=== PATIENT | female | born 1970 | race African-American/Black ===

== ENCOUNTER 2021-11-16 03:11 | Emergency (ER) | payer BC, OTHER ==
[2021-11-16 03:41] LABS: Absolute Lymphocytes (CBC) 4.5 K/uL (0.7-4.9); Hematocrit 39.4 % (36.0-45.0); Lymphocytes % 58.5 % (15.3-44.8); MPV 7.1 fL (7.6-11.3); RBC Red Blood Cell Count 4.37 M/uL (3.86-4.86)
[2021-11-16] MEDS ORDERED: MORPHINE 4 MG/ML SYR ONE (03:46)
[2021-11-16] MEDS ORDERED: ONDANSETRON 4 MG/2 ML VIAL ONE (03:46)
[2021-11-16] MEDS ORDERED: NA CHLORIDE 0.9% 1,000 ML ONE (03:57)
[2021-11-16 04:00] LABS: ALT/SGPT 25 U/L (12-78); AST/SGOT 12 U/L (15-37); Albumin 3.7 g/dL (3.4-5.0); Alkaline Phosphatase 68 U/L (45-117); BUN Blood Urea Nitrogen 19 mg/dL (7-18); Bicarbonate 27 mmol/L (21-32); Bilirubin Direct < 0.1 mg/dL (0-0.2); Bilirubin Total 0.2 mg/dL (0.2-1.0); Glucose Level 118 mg/dL (74-106); Lipase 116 U/L (73-393); Potassium 3.5 mmol/L (3.5-5.1); Protein, Total 7.7 g/dL (6.4-8.2); Sodium Level 141 mmol/L (136-145)
[2021-11-16 04:42] LABS: Blood Morphology Comment NOT SEEN (NOT SEEN); Platelet Estimate INCR
[2021-11-16 05:24] LABS: Urine Blood 2+ (Negative); Urine Glucose Negative (Negative); Urine Protein Negative (Negative); Urine Specific Gravity 1.025 (1.005-1.030)
--- NOTE | 2021-11-16 06:25 | EDPHYS ---
Physician Documentation [facility] Name: Sosa Knight Age: 51 yrs Sex: Female : 1970 Arrival Date: 11/16/2021 Time: 03:14 Bed 13 Private MD: ED Physician Ronnie Hair HPI: 11/16 03:35 This 51 yrs old Black Female presents to ER via Ambulatory with complaints of Back Pain.7 03:36 The patient complains of pain in the left flank. The pain radiates to the Left lower mh7 abdomen. Onset: The symptoms/episode began/occurred today, at 01:00. Modifying factors: The symptoms are alleviated by nothing. the symptoms are aggravated by movement, palpation/percussion. Associated signs and symptoms: Pertinent positives: nausea, Pertinent negatives: diarrhea, dizziness, dysuria, fever, urinary frequency, headache, hematuria, pain radiating to the lower extremities, vomiting. Severity of pain: At its worst the pain was moderate today, in the emergency department the pain is unchanged. 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 - Social history:: Smoking status: Patient denies any tobacco usage or history of. ROS: 03:36 Constitutional: Negative for fever, chills, and weight loss, Eyes: Negative for injury, mh7 pain, redness, and discharge, ENT: Negative for injury, pain, and discharge, Neck: Negative for injury, pain, and swelling, Cardiovascular: Negative for chest pain, palpitations, and edema, Respiratory: Negative for shortness of breath, cough, wheezing, and pleuritic chest pain, : Negative for injury, bleeding, discharge, and swelling, MS/Extremity: Negative for injury and deformity, Skin: Negative for injury, rash, and discoloration, Neuro: Negative for headache, weakness, numbness, tingling, and seizure, Psych: Negative for depression, anxiety, suicide ideation, homicidal ideation, and hallucinations, Allergy/Immunology: Negative for hives, rash, and allergies, Endocrine: Negative for neck swelling, polydipsia, polyuria, polyphagia, and marked weight changes, Hematologic/Lymphatic: Negative for swollen nodes, abnormal bleeding, and unusual bruising. Exam: 03:36 Head/Face: Normocephalic, atraumatic. Eyes: Pupils equal round and reactive to light, mh7 extra-ocular motions intact. Lids and lashes normal. Conjunctiva and sclera are non-icteric and not injected. Cornea within normal limits. Periorbital areas with no swelling, redness, or edema. Neck: Trachea midline, no thyromegaly or masses palpated, and no cervical lymphadenopathy. Supple, full range of motion without nuchal rigidity, or vertebral point tenderness. No Meningismus. Chest/axilla: Normal chest wall appearance and motion. Nontender with no deformity. No lesions are appreciated. Cardiovascular: Regular rate and rhythm with a normal S1 and S2. No gallops, murmurs, or rubs. Normal PMI, no JVD. No pulse deficits. Respiratory: Lungs have equal breath sounds bilaterally, clear to auscultation and percussion. No rales, rhonchi or wheezes noted. No increased work of breathing, no retractions or nasal flaring. 03:36 Skin: Warm, dry with normal turgor. Normal color with no rashes, no lesions, and no evidence of cellulitis. MS/ Extremity: Pulses equal, no cyanosis. Neurovascular intact. Full, normal range of motion. Neuro: Awake and alert, GCS 15, oriented to person, place, time, and situation. Cranial nerves II-XII grossly intact. Motor strength 5/5 in all extremities. Sensory grossly intact. Cerebellar exam normal. Normal gait. Psych: Awake, alert, with orientation to person, place and time. Behavior, mood, and affect are within normal limits. 03:36 Constitutional: The patient appears in no acute distress, alert, awake, uncomfortable. 03:36 Abdomen/GI: Inspection: abdomen appears normal, Bowel sounds: normal, in all quadrants, Palpation: moderate abdominal tenderness, in the left lower quadrant, mass, is not appreciated, rebound tenderness, is not appreciated, voluntary guarding, is not appreciated, involuntary guarding, is not appreciated, no appreciated organomegaly, Rectal exam: the exam is deferred, because of patient request, Indicators: McBurney's point is not tender, Chapman's sign is negative, Rovsing's sign is negative, Obturator sign is negative, Psoas sign is negative, Liver: no appreciated palpable abnormalities, Hernia: not appreciated. 03:36 Back: normal spinal alignment noted, CVA tenderness, that is moderate, is noted on the left, vertebral tenderness, is not appreciated, muscle spasm, is not present. Vital Signs: 03:30 BP 153 / 83; Pulse 104; Resp 20; Temp 97(TE); Pulse Ox 100% on R/A; Weight 90.72 kg lp1 (R); Height 5 ft. 6 in. (167.64 cm); Pain 10/10; 04:32 BP 142 / 86; Pulse 88; Resp 18 S; Pulse Ox 100% on R/A; Pain 8/10; lg3 06:24 BP 136 / 86; Pulse 86; Resp 18 S; Pulse Ox 100% on R/A; Pain 6/10; lg3 03:30 Body Mass Index 32.28 (90.72 kg, 167.64 cm) lp1 MDM: 06:21 Differential diagnosis: nephrolithiasis, pyelonephritis, UTI, diverticulitis. Data [facility] reviewed: vital signs, nurses notes, lab test result(s), amylase and lipase, CBC, electrolytes, urinalysis, radiologic studies, CT scan. Data interpreted: Pulse oximetry: on room air is 100 %. Interpretation: normal. Counseling: I had a detailed discussion with the patient and/or guardian regarding: the historical points, exam findings, and any diagnostic results supporting the discharge/admit diagnosis, the presence of at least one elevated blood pressure reading (>120/80) during this emergency department visit, lab results, radiology results, the need for outpatient follow up, to return to the emergency department if symptoms worsen or persist or if there are any questions or concerns that arise at home. Response to treatment: the patient's symptoms have resolved after treatment, the patient's blood pressure is in an acceptable range, mental status has returned to baseline, the patient no longer shows bradycardia, the patient is not short of breath, the patient is not tachycardic, the patient's pain is gone, the patient's temperature has normalized. 06:25 Patient medically screened. mh7 11/16 03:35 Order name: Basic Metabolic Panel; Complete Time: 04:16 [facility] 11/16 03:35 Order name: CBC with Diff; Complete Time: 04:44 [facility] 11/16 03:35 Order name: Hepatic Function; Complete Time: 04:16 [facility] 11/16 03:35 Order name: Lipase; Complete Time: 04:16 [facility] 11/16 03:47 Order name: Manual Differential; Complete Time: 04:44 EDMS 11/16 03:35 Order name: IV Saline Lock; Complete Time: 03:50 [facility] 11/16 03:35 Order name: Labs collected and sent; Complete Time: 03:54 [facility] 11/16 03:35 Order name: Urine Dipstick-Ancillary (obtain specimen); Complete Time: 05:17 [facility] 11/16 03:35 Order name: CT Stone Protocol [facility] 11/16 05:24 Order name: Urine Dipstick-Ancillary; Complete Time: 05:32 EDMS Administered Medications: 03:52 Drug: Zofran (Ondansetron) 4 mg Route: IVP; Site: left forearm; lg3 03:53 Follow up: Response: No adverse reaction lg3 03:53 Drug: morphine 4 mg Route: IVP; Site: left forearm; lg3 05:55 Follow up: Response: No adverse reaction; RASS: Alert and Calm (0) lg3 03:58 Drug: NS 0.9% 1000 ml Route: IV; Rate: 1000 ml; Site: left forearm; lg3 05:55 Follow up: IV Status: Completed infusion; IV Intake: 1000ml lg3 Disposition Summary: 11/16/21 06:25 Discharge Ordered Location: Home [facility] Problem: new [facility] Symptoms: have improved [facility] Condition: Stable [facility] Diagnosis - Lower abdominal pain, unspecified 7 - Flank Pain 7 - Constipation, unspecified mh7 Followup: [facility] - With: Private Physician - When: 1 - 2 days - Reason: Worsening of condition, Recheck today's complaints, Continuance of care, Re-evaluation by your physician Discharge Instructions: - Discharge Summary Sheet 7 - Constipation, Adult, Pieu-po-Swes mh7 - Abdominal Pain, Adult, Ptfh-[id number] mh7 - Flank Pain, Adult, Tonj-sd-Cjda 7 Forms: - Medication Reconciliation Form [facility] - Thank You Letter 7 - Antibiotic Education mh7 - Prescription Opioid Use [facility] Prescriptions: - Dulcolax (bisacodyl) 5 mg Oral tablet,delayed release (DR/EC) - take 2 tablet by ORAL route once daily As needed; 10 tablet; Refills: 0, [facility] Product Selection Permitted - ondansetron 4 mg Oral tablet,disintegrating - place 1 tablet by TRANSLINGUAL route every 8 hours As needed; 10 tablet; [facility] Refills: 0, Product Selection Permitted - Colace 100 mg Oral Capsule - take 1 tablet by ORAL route every 12 hours; 20 tablet; Refills: 0, Product [facility] Selection Permitted - dicyclomine 20 mg Oral Tablet - take 1 tablet by ORAL route 4 times per day As needed; 20 tablet; Refills: 0, [facility] Product Selection Permitted Signatures: Dispatcher [employer] EDMS Birgit Tracey RN RN lp1 Stephanie Chappell RN RN lg3 Ronnie Hair MD MD [facility] Corrections: (The following items were deleted from the chart) 04:42 03:47 CBC Smear Scan ordered. EDMS EDMS
--- NOTE | 2021-11-16 06:25 | ER ---
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 Coronavirus screen: At this time, the client does not indicate any symptoms associated with coronavirus-19. Ebola Screen: No symptoms or risks identified at this time. Onset of symptoms was November 16, 2021. 03:21 Method Of Arrival: Ambulatory lp1 03:21 Acuity: JACKELYN 3 lp1 03:30 Initial Sepsis Screen: Does the patient meet any 2 criteria? No. Patient's initial lp1 sepsis screen is negative. Does the patient have a suspected source of infection? No. Patient's initial sepsis screen is negative. Risk Assessment: Do you want to hurt yourself or someone else? Patient reports no desire to harm self or others. 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 - Social history:: Smoking status: Patient denies any tobacco usage or history of. Screenin:30 Abuse screen: Denies threats or abuse. Nutritional screening: No deficits noted. lg3 Tuberculosis screening: No symptoms or risk factors identified. Fall Risk None identified. Assessment: 04:30 General: Appears in no apparent distress. uncomfortable, Behavior is calm, cooperative. lg3 Pain: Complains of pain in abdomen and left lower quadrant and left flank Pain currently is 8 out of 10 on a pain scale. Neuro: No deficits noted. Level of Consciousness is awake, alert, obeys commands, Oriented to person, place, time, situation. Cardiovascular: No deficits noted. Capillary refill < 3 seconds JVD is absent Patient's skin is warm and dry. Respiratory: No deficits noted. Airway is patent Trachea midline Respiratory effort is even, unlabored, Respiratory pattern is regular, symmetrical. GI: No deficits noted. Bowel sounds present X 4 quads. Reports lower abdominal pain. : No deficits noted. No signs and/or symptoms were reported regarding the genitourinary system. EENT: No deficits noted. No signs and/or symptoms were reported regarding the EENT system. Derm: No deficits noted. No signs and/or symptoms reported regarding the dermatologic system. Skin is intact, is healthy with good turgor, Skin is dry. Musculoskeletal: No deficits noted. No signs and/or symptoms reported regarding the musculoskeletal system. Circulation, motion, and sensation intact. Range of motion: intact in all extremities. 06:20 Reassessment: Patient appears in no apparent distress at this time. No changes from lg3 previously documented assessment. Patient and/or family updated on plan of care and expected duration. Pain level reassessed. Patient is alert, oriented x 3, equal unlabored respirations, skin warm/dry/pink. Vital Signs: 03:30 BP 153 / 83; Pulse 104; Resp 20; Temp 97(TE); Pulse Ox 100% on R/A; Weight 90.72 kg lp1 (R); Height 5 ft. 6 in. (167.64 cm); Pain 10/10; 04:32 BP 142 / 86; Pulse 88; Resp 18 S; Pulse Ox 100% on R/A; Pain 8/10; lg3 06:24 BP 136 / 86; Pulse 86; Resp 18 S; Pulse Ox 100% on R/A; Pain 6/10; lg3 03:30 Body Mass Index 32.28 (90.72 kg, 167.64 cm) lp1 ED Course: 03:14 Patient arrived in ED. ja2 03:22 Triage completed. lp1 03:30 Ronnie Hair MD is Attending Physician. mh7 03:35 Missed attempt(s): 22 gauge in right antecubital area. Missed attempt(s): 22 gauge in lp1 right forearm. 03:43 Stephanie Chappell, YARA is Primary Nurse. lg3 03:50 Inserted saline lock: 22 gauge in left forearm, using aseptic technique. ds4 04:24 CT Stone Protocol In Process Unspecified. EDMS 04:30 Patient has correct armband on for positive identification. Bed in low position. Call lg3 light in reach. Side rails up X 1. 06:34 No provider procedures requiring assistance completed. IV discontinued, intact, lg3 bleeding controlled, No redness/swelling at site. Pressure dressing applied. 06:34 Arm band placed on. lg3 Administered Medications: 03:52 Drug: Zofran (Ondansetron) 4 mg Route: IVP; Site: left forearm; lg3 03:53 Follow up: Response: No adverse reaction lg3 03:53 Drug: morphine 4 mg Route: IVP; Site: left forearm; lg3 05:55 Follow up: Response: No adverse reaction; RASS: Alert and Calm (0) lg3 03:58 Drug: NS 0.9% 1000 ml Route: IV; Rate: 1000 ml; Site: left forearm; lg3 05:55 Follow up: IV Status: Completed infusion; IV Intake: 1000ml lg3 Intake: 05:55 IV: 1000ml; Total: 1000ml. lg3 Outcome: 06:25 Discharge ordered by . hamida 06:34 Discharged to home ambulatory. lg3 06:34 Condition: improved 06:34 Discharge instructions given to patient, Instructed on discharge instructions. 06:35 Patient left the ED. lg3 Signatures: Dispatcher [employer] EDMS Birgit Tracey, RN RN lp1 David Hogan ds4 Stephanie Chappell RN RN lg3 Ronnie Hair MD MD 7 Mehreen Queen
[2021-11-16 06:47] VITALS: TEMP 97; O2SAT 100
[2021-11-16 06:51] VITALS: BP 136/86
--- NOTE | 2021-11-17 13:14 | RAD REPORT ---
EXAM DESCRIPTION: CT ABDOMEN PELVIS WITHOUT IV CONTRAST CLINICAL HISTORY: Abd pain;Flank pain COMPARISON: None. TECHNIQUE: CT ABDOMEN PELVIS WITHOUT IV CONTRAST on 11/16/2021 3:35 AM SENIOR BENEFITS ANALYST This exam was performed according to our departmental dose-optimization program, which includes autom ated exposure control, adjustment of the mA and/or kV according to patient size and/or use of iterati ve reconstruction technique. FINDINGS: Lower lungs are clear. Abdomen: The liver is normal in appearance. There is no biliary dilatation. Gallbladder is normal in appearance. The pancreas and spleen are normal in appearance. The adrenal glands and kidneys are unre markable. Abdominal aorta is normal in course and caliber without aneurysm. There is no free air. There is no r etroperitoneal adenopathy. Pelvis: There is moderate amount of stool throughout the colon appendix is normal. Urinary bladder is unremarkable. There is no free fluid. Hysterectomy was performed. Skeleton: There are no acute osseous findings. No suspicious bony lesions. IMPRESSION: No acute process. Electronically signed by: Luis Kumar MD 11/16/2021 5:48 AM SENIOR BENEFITS ANALYST Due to temporary technical issues with the PACS/Fluency reporting system, reports are being signed by the in house radiologist without review as a courtesy to ensure prompt reporting. The interpreting r adiologist is fully responsible for the content of the report.
== END 2021-11-16 06:35 | disposition home or self-care (01) ==
LOC: ER 03:11
DX: K59.00 Constipation, unspecified (principal); R10.9 Unspecified abdominal pain
CPT/HCPCS: 96361; 85025; 80048; 36415; 80076; 81003; 83690; 76377; 74176; 96375; 96374; 99283; J7030; J2405